=== PATIENT | male | born 2000 | race Asian ===

== ENCOUNTER 2021-05-13 14:27 | Outpatient (CLI) | payer OTHER | END 2021-05-13 14:28 | disposition EMS.NT | LOC: EMS 14:27 | DX: Z04.1 Encounter for examination and observation following transport accident (principal); M25.512 Pain in left shoulder; R07.89 Other chest pain ==

== ENCOUNTER 2021-05-13 16:14 | Emergency (ER) | payer OTHER ==
[2021-05-13 16:26] VITALS: BP 135/82
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
[2021-05-13] MEDS ORDERED: HYDROcod/ACETAM 5/325 MG TABLET PO STA (16:45)
--- NOTE | 2021-05-13 17:08 | XRAY Report ---
PROCEDURE: Chest 2 View X-Ray INDICATIONS: chest injury TECHNIQUE: 2 view(s) of the chest. COMPARISON: None. FINDINGS: Surgical changes and devices: None. Lungs and pleura: No pleural effusions or pneumothorax. Lungs are clear. Mediastinum: Mediastinal contours are normal. Heart size is normal. Bones and chest wall: No suspicious bony abnormalities. Specifically no displaced rib fractures. So ft tissues appear unremarkable. IMPRESSION: No evidence of an acute cardiopulmonary abnormality. Reviewed by: Elijah Andrade DO on 05/13/2021 4:07 PM [facility] Approved by: Elijah Andrade DO on 05/13/2021 4:07 PM [facility] Station ID: [id number]
[2021-05-13] MEDS ORDERED: HYDROcod/ACET 5/325 Prepack 4 PO STA (17:15)
== END 2021-05-13 17:25 | disposition home or self-care (01) ==
LOC: ED 16:14
DX: S20.212A Contusion of left front wall of thorax, initial encounter (principal); V49.88XA Car occupant (driver) (passenger) injured in other specified transport accidents, initial encounter; Y92.410 Unspecified street and highway as the place of occurrence of the external cause
CPT/HCPCS: 71046; 99283; A9270

== ENCOUNTER 2021-09-21 08:00 | Outpatient (CLI) | payer OTHER ==
--- NOTE | 2021-09-21 15:15 | XRAY Report ---
PROCEDURE: Foot 3 View RT INDICATIONS: FOOT JOINT PAIN, RIGHT TECHNIQUE: 3 views of the foot were acquired. COMPARISON: X-ray ankle 09/21/2021 FINDINGS: Bones: No fractures or dislocations. No suspicious bony lesions. Soft tissues: No tibiotalar joint effusion. Achilles tendon appears normal. IMPRESSION: No visualized acute fracture or dislocation. However, occult injury cannot be excluded. Recommend tisha rt interval imaging follow-up in 7-10 days as clinically indicated for additional evaluation. Reviewed by: Mayra Howard MD on 09/21/2021 3:13 PM PST Approved by: Mayra Howard MD on 09/21/2021 3:13 PM [facility] Station ID: [id number]
--- NOTE | 2021-09-21 15:15 | XRAY Report ---
PROCEDURE: Ankle 3 View RT INDICATIONS: SRINIVAS JOINT PAIN, RIGHT TECHNIQUE: 3 views of the ankle were acquired. COMPARISON: X-ray foot 09/21/2021 FINDINGS: Bones: No fractures or dislocations. Ankle mortise is normally aligned. No suspicious bony lesions . Soft tissues: No tibiotalar joint effusion. Achilles tendon appears normal. IMPRESSION: No visualized acute fracture or dislocation. However, occult injury cannot be excluded. Recommend short interval imaging follow-up in 7-10 days as clinically indicated for additional evalua tion. Reviewed by: Mayra Howard MD on 09/21/2021 3:14 PM PST Approved by: Mayra Howard MD on 09/21/2021 3:14 PM [facility] Station ID: [id number]
== END 2021-09-21 23:59 ==
LOC: DI.N 08:00
PROVIDERS: ATTEND Family Medicine
DX: M79.671 Pain in right foot (principal); M25.571 Pain in right ankle and joints of right foot

== ENCOUNTER 2022-04-12 08:00 | Outpatient (CLI) | payer OTHER ==
--- NOTE | 2022-04-12 15:28 | XRAY Report ---
PROCEDURE: Ribs w/PA Chest LT INDICATIONS: LEFT RIB PAIN TECHNIQUE: 2 views of the left ribs were acquired, along with a single view chest. COMPARISON: Chest x-ray 2 view, 05/13/2021. FINDINGS: Surgical changes and devices: None. Bones and chest wall: No fractures or dislocations. No suspicious bony lesions. Overlying soft tis sues appear unremarkable. Lungs and pleura: No pleural effusions or pneumothorax. Lungs appear clear. Mediastinum: Mediastinal contours appear normal. Heart size is normal. IMPRESSION: No displaced rib fractures. Reviewed by: Nathan Gomes MD on 04/12/2022 3:26 PM PDT Approved by: Nathan Gomes MD on 04/12/2022 3:26 PM PDT Station ID: [id number]
== END 2022-04-12 23:59 | disposition home or self-care (01) ==
LOC: DI.N 08:00
PROVIDERS: ATTEND Family Medicine
DX: R07.81 Pleurodynia (principal)

== ENCOUNTER 2022-09-10 15:23 | Emergency (ER) | payer OTHER ==
--- NOTE | 2022-09-10 16:08 | XRAY Report ---
PROCEDURE: Chest 1 View X-Ray INDICATIONS: SOA TECHNIQUE: One view of the chest was acquired. COMPARISON: None. FINDINGS: Surgical changes and devices: None. Lungs and pleura: No pleural effusions or pneumothorax. Lungs are clear. Mediastinum: Mediastinal contours appear normal. Heart size is normal. Bones and chest wall: No suspicious bony lesions. Overlying soft tissues appear unremarkable. IMPRESSION: No acute cardiopulmonary process demonstrated radiographically. Reviewed by: Cyrus Sapp MD on 09/10/2022 4:07 PM [facility] Approved by: Cyrus Sapp MD on 09/10/2022 4:07 PM [facility] Station ID: [id number]
[2022-09-10] MEDS ORDERED: IBUPROFEN 600 MG TABLET PO STA (18:52)
--- NOTE | 2022-09-10 19:18 | ED Physician Documentation ---
History of Present Illness - Stated complaint Stated Complaint: SOA,LT SIDE PX - Chief complaint Chief Complaint: Resp - Additonal information Additional information: 22-year-old male presents emergency department for evaluation of several weeks of left-sided rib pain. He reports that it hurts when he takes a deep breath though he denies any falls or trauma. The pain is reproducible. He is taken nothing for the pain. He denies cough congestion fevers. He does not have any leg swelling. 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 Does not smoke or vape. He is not taking any prescribed medications. No unilateral leg swelling. No personal history of DVT or cancer. Reliable historian Review of Systems Constitutional: denies: Fever, Chills Nose: reports: Reviewed and negative Throat: reports: Reviewed and negative Cardiac: reports: Chest pain / pressure. denies: Palpitations Respiratory: denies: Dyspnea, Cough GI: reports: Reviewed and negative : reports: Reviewed and negative Skin: reports: Reviewed and negative PD PAST MEDICAL HISTORY - Past Medical History Past Medical History: No - Present Medications Home Medications: Ambulatory Orders Medication Instructions Recorded Confirmed HYDROcod/ACETAM 5/325 [[place] 5/325] 1 - 2 tab PO Q6H PRN #15 tablet 05/13/21 - Allergies Allergies/Adverse Reactions: Allergies Allergy/AdvReac Type Severity Reaction Status Date / Time No Known Drug Allergies Allergy Verified 09/10/22 15:44 - Social History Does the pt smoke?: No Smoking Status: Never smoker Does the pt drink ETOH?: No Does the pt have substance abuse?: No PD ED PE NORMAL - General General: Alert and oriented X 3, No acute distress, Well developed/nourished - HEENT HEENT: Atraumatic, Moist mucous membranes - Neck Neck: Supple, no meningeal sign, No adenopathy - Cardiac Cardiac: RRR, No murmur, Strong equal pulses, Other (Tenderness with palpation to the left lateral ribs. No crepitus ecchymosis or erythema noted. 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 No falls or trauma. Pain is reproducible on movement. He is active duty [employer]. He is taken nothing for the pain. He reports that this pain is what he calls a short of breath. However he has no cough or hemoptysis. Cardiopulmonary auscultation is unremarkable. There is no leg swelling. Clinically he does not present as heart failure. He is PERC negative therefore I doubt PE. Given age low suspicion for ACS. He has unremarkable vital signs. I suspect that he has some costochondritis or even rib contusion. He was administered 600 mg of ibuprofen here in the emergency department with good relief of symptoms. He is discharged home with recommendation for [id number] Tylenol and ibuprofen. We will follow-up with [facility] if not markedly improved. Departure - Departure Disposition: 01 Home, Self Care Clinical Impression: Rib pain on left side Condition: Stable Record reviewed to determine appropriate education?: Yes Comments: Rashad you have had some pain on the left side of your ribs now for a few weeks. Your chest x-ray is normal and does not show any pneumonia findings of a rib fracture. I encourage you to take ibuprofen or Tylenol [id number] for discomfort to see if that it improves your symptoms. If it does not follow-up with [facility]. You may benefit from further evaluation such as with pulmonary function testing.
[2022-09-10 19:27] VITALS: BP 126/83
== END 2022-09-10 19:27 | disposition home or self-care (01) ==
LOC: ED 15:23
DX: R07.81 Pleurodynia (principal)
CPT/HCPCS: 71045; 99283; A9270